=== PATIENT | female | born 1980 | race Caucasian/White ===

== ENCOUNTER 2020-07-27 22:08 | Emergency (ER) | payer OTHER, SELFPAY ==
[2020-07-27] VITALS (14 sets, daily range): BP systolic 122–147; BP diastolic 82–91; PULSE 72–96; RESP 15–24; TEMP 36.1; O2SAT 96–100
--- NOTE | ~2020-07-27 | XR_ITS ---
EXAMINATION: XR chest 2V DATE: 07/27/2020 22:47 INDICATION: Chest pain TECHNIQUE: PA and lateral views of the chest are obtained. COMPARISON: 03/31/2018 FINDINGS: The lungs are free of acute opacities. There is no pleural effusion or pneumothorax. The ca rdiomediastinal silhouette is normal. The visualized bones and soft tissues are unremarkable. IMPRESSION: 1. No acute cardiopulmonary abnormality. Reviewed, dictated and finalized at location A. RONMENTAL DIRECTOR
--- NOTE | 2020-07-27 22:15 | ECG_ITS ---
Measurements Intervals [place] Rate: 79 P: 41 MA: 132 QRS: 22 QRSD: 90 T: 15 QT: 381 QTc: 439 Interpretive Statements SINUS RHYTHM MINIMAL Q WAVES- HIGH LATERAL LEADS BORDERLINE ST-T WAVE ABNORMALITY- INFERIOR LEADS BORDERLINE ECG Electronically Signed On 07-29-2020 8:50:18 [employer] AGENT by Sanya Mcfarland D.O.
[2020-07-27] MEDS: BELLADONNA ALK/PHENOB ELIX 10 ML, MAG HYDROX/ALUMINUM HYD/SIMETH 30 ML, LIDOCAINE HCL 2... PO (22:46)
[2020-07-27 22:52] LABS: Basophils Percent Auto 0.3 % (0.2-1.2); Eosinophils Percent Auto 0.1 % (0-4.4); Hematocrit 43.3 % (37.0-47.0); Hemoglobin 14.7 g/dL (12.0-15.0); Immature Granulocyte Absolute 0.05 K/mm3 (0.00-0.031); Immature Granulocyte Percent A 0.5 % (0-0.5); Lymphocytes Absolute Auto 1.89 K/mm3 (0.9-3.2); Lymphocytes Percent Auto 17.1 % (18.3-44.2); Mean Corpuscular HGB Conc 33.9 g/dl (32-36); Mean Corpuscular Hemoglobin 29.7 pg (26-34); Mean Corpuscular Volume 87.5 fl (80-100); Mean Platelet Volume 10.4 fl (7.4-10.4); Monocytes Absolute Auto 0.5 K/mm3 (0.1-0.6); Monocytes Percent Auto 4.9 % (2.6-8.5); Neutrophils Absolute Auto 8.5 K/mm3 (1.3-6.7); Neutrophils Percent Auto 77.1 % (45.5-73.1); Platelet Count Result 305 k/mm3 (150-375); Red Blood Count 4.95 M/mm3 (4.2-5.4); Red Cell Distribution Width 13.3 % (11.5-14.5); White Blood Count 11.1 K/mm3 (4.5-10.0)
[2020-07-27 23:03] LABS: Anion Gap 8 mmol/L (8-16); Blood Urea Nitrogen 16 mg/dL (7-17); Calcium 9.5 mg/dL (8.4-10.2); Carbon Dioxide 26 mmol/L (22-30); Chloride 104 mmol/L (98-107); Estimated CRCL calculation 85 ml/min; Estimated Glomerular Filt Rate > 60; Glucose 148 mg/dL (65-105); Potassium 4.1 mmol/L (3.4-5.0); Sodium 138 mmol/L (137-145)
[2020-07-27 23:09] LABS: Add Urine Microscopic? NO; Appearance Urine Clear (Clear); Bilirubin Urine Negative (Negative); Blood Urine Negative (Negative); Color Urine Straw (Yellow); Glucose Urine UA Negative (Negative); Ketones Urine Negative (Negative); Leukocyte Esterase Ur Negative LEU/UL (Negative); Nitrate Urine Negative (Negative); Protein Urine Negative (Negative); Specific Grav Ur 1.015 (1.001-1.035); Urobilinogen Urine Negative mg/dL (<2.0)
[2020-07-27 23:15] LABS: Troponin I < 0.012 ng/mL (0.000-0.034)
[2020-07-27 23:42] LABS: INR 0.9
--- NOTE | 2020-07-27 23:58 | ED.CHESTPAIN ---
HPI - Chest Pain General Chief Complaint: Chest Pain Stated Complaint: cp Time Seen by Provider: 07/27/20 22:11 History of Present Illness HPI narrative: Patient is a 40-year-old female who presents to the ER with chest pain. Constant for 2 days. Center of her chest. Aching and sharp at times. No radiation. Worse with walking. No nausea/vomiting/shortness of breath. Was seen at [facility] 2 days ago. Was told she should stay in the hospital as she may be having an [place]. She then left to go home because she needed to arrange childcare and then returned here today. Has a father who had an [place] in his 40s. Related Data Home Medications Medication Instructions Recorded Confirmed escitalopram oxalate mg 07/27/20 estradiol mg 07/27/20 Allergies Allergy/AdvReac Type Severity Reaction Status Date / Time No Known Allergies Allergy Verified 07/27/20 22:18 Review of Systems Review of Systems: All systems reviewed & are unremarkable except as noted in HPI and below Constitutional: Constitutional: Denies chills, Denies fever(s) and Denies weakness ENT: Denies nasal congestion and Denies sore throat Cardiovascular: Cardiovascular: Reports chest pain, Denies rapid heart rate and Denies radiating jaw, neck or arm pain Respiratory: Respiratory: Denies cough, Denies dyspnea and Denies wheezing Gastrointestinal: Gastrointestinal: Denies abdominal pain, Denies nausea and Denies vomiting PMFSH Past Medical History Medical History (Updated 07/28/20 @ 01:25 CDT by Henry Hoyt MD) Healthy female adult Surgical History Surgical History (Updated 07/28/20 @ 00:02 by Henry Hoyt MD) H/O eye surgery Social History Social History (Updated 07/28/20 @ 00:02 by Henry Hoyt MD) Smoking status: Current every day smoker Exam Narrative: Exam Narrative: GENERAL: Well-appearing, well-nourished, and in no acute distress. HEAD: Normocephalic, atraumatic. CHEST: Clear to auscultation. No respiratory distress. HEART: Regular rate and rhythm. No murmur heard. Normal peripheral pulses. ABDOMEN: Soft, nontender, nondistended. EXTREMITIES: Normal range of motion. No edema. SKIN: Warm, dry, no rash. NEURO: Alert and oriented x3. PSYCH: Normal mood and affect. Course Course Emergency Course: Troponin negative. Still have not received requested paperwork from [facility]. Discharge home. Vital Signs Vital signs: Vital Signs Temperature 97.0 F L 07/27/20 22:12 Pulse Rate 89 07/27/20 22:12 Respiratory Rate 24 H 07/27/20 22:12 Blood Pressure 147/91 H 07/27/20 22:12 Pulse Oximetry 98 07/27/20 22:12 Temperature 97.0 F L 07/27/20 22:12 Pulse Rate 71 07/28/20 00:45 Respiratory Rate 17 07/28/20 00:45 Blood Pressure 122/79 07/28/20 00:31 Pulse Oximetry 98 07/28/20 00:45 MDM - Chest Pain Lab Data Result diagrams: 07/27/20 22:47 07/27/20 22:47 Labs: Lab Results 07/27/20 07/27/20 07/27/20 Range/Units 22:47 22:47 22:47 WBC 11.1 H (4.5-10.0) K/mm3 RBC 4.95 (4.2-5.4) M/mm3 Hgb 14.7 (12.0-15.0) g/dL Hct 43.3 (37.0-47.0) % MCV 87.5 (80-100) fl MCH 29.7 (26-34) pg MCHC 33.9 (32-36) g/dl RDW 13.3 (11.5-14.5) % Plt Count 305 (150-375) k/mm3 MPV 10.4 (7.4-10.4) fl Immature Gran % (Auto) 0.5 (0-0.5) % Neut % (Auto) 77.1 H (45.5-73.1) % Lymph % (Auto) 17.1 L (18.3-44.2) % [place] % (Auto) 4.9 (2.6-8.5) % Eos % (Auto) 0.1 (0-4.4) % Baso % (Auto) 0.3 (0.2-1.2) % Lymph # (Auto) 1.89 (0.9-3.2) K/mm3 [place] # (Auto) 0.5 (0.1-0.6) K/mm3 Eos # (Auto) 0.0 (0-0.3) K/mm3 Baso # (Auto) 0.0 (0.0-0.1) K/mm3 Abs Immat Gran (auto) 0.05 H (0.00-0.031) K/mm3 Absolute Neuts (auto) 8.5 H (1.3-6.7) K/mm3 Absolute Nucleated RBC 0.0 (0.0-0.012) K/mm3 Nucleated RBC % 0.0 (0.0-0.2) % PT 101.9 H (11.1-14.7) Seconds INR 13.8 H* AP
[2020-07-28] VITALS (7 sets, daily range): BP systolic 112–122; BP diastolic 66–83; PULSE 65–78; RESP 15–19; O2SAT 97–99
[2020-07-28 09:20] LABS: INR 0.9; Partial Thromboplastin Time 27.5 SECONDS (22.3-36.8); Prothrombin Time 11.8 Seconds (11.1-14.7)
== END 2020-07-28 01:41 | disposition home or self-care (01) ==
PROVIDERS: Emergency Provider Emergency Medicine; PCP Physician Assistant
DX: R07.9 Chest pain, unspecified (principal); F17.200 Nicotine dependence, unspecified, uncomplicated; R94.31 Abnormal electrocardiogram [ECG] [EKG]
CPT/HCPCS: 36415; 71046; 80048; 81003; 84484; 85025; 85610; 85730; 93005; 99284; A9270

== ENCOUNTER 2020-10-20 20:14 | Emergency (ER) | payer OTHER, SELFPAY ==
--- NOTE | ~2020-10-20 | XR_ITS ---
EXAMINATION: XR chest 1V portable EXAM DATE: 10/20/2020 21:38 INDICATION: Cough, shortness of breath, chills and fever. TECHNIQUE: Portable AP frontal chest x-ray was obtained. Comparison is made to prior examination from 07/27/2020. FINDINGS: The lungs are clear. There are no pleural effusions. Cardiomediastinal silhouette is norm al. There is no pneumothorax suspected. The bones and soft tissues are unremarkable. IMPRESSION: No acute cardiopulmonary findings. Reviewed, dictated and finalized at location A. ST'S MODEL
[2020-10-20 20:18] VITALS: BP 138/87; PULSE 78; RESP 18; TEMP 36.4; O2SAT 98
--- NOTE | 2020-10-20 21:11 | PC.NURSE ---
pt ambulated to bathroom at this time
--- NOTE | 2020-10-20 22:18 | ED.HA ---
HPI - Headache General Chief Complaint: Headache Stated Complaint: headache, body ache, sore throat Time Seen by Provider: 10/20/20 20:27 History of Present Illness HPI Narrative: Patient is a 40-year-old female who presents ER with headache/body aches/cough. Ongoing for 2 days. Mild in nature. No fevers or chills or sweats. Reports Covid exposure to an individual 7 days ago. Concerned she may have contracted it. No exertional dyspnea. No aggravating or alleviating factors that she is noted. Related Data Home Medications Medication Instructions Recorded Confirmed escitalopram oxalate mg 07/27/20 estradiol mg 07/27/20 cholecalciferol (vitamin D3) 10/20/20 cyanocobalamin (vitamin B-12) mcg 10/20/20 ferrous sulfate mg 10/20/20 rosuvastatin mg 10/20/20 Allergies Allergy/AdvReac Type Severity Reaction Status Date / Time No Known Allergies Allergy Verified 10/20/20 20:15 Review of Systems Constitutional: Constitutional: Denies chills, Denies fever(s) and Denies weakness ENT: Denies nasal congestion and Reports sore throat Cardiovascular: Cardiovascular: Denies chest pain, Denies rapid heart rate and Denies radiating jaw, neck or arm pain Respiratory: Respiratory: Reports cough, Denies dyspnea and Denies wheezing Gastrointestinal: Gastrointestinal: Denies nausea and Denies vomiting Musculoskeletal: Musculoskeletal: Reports myalgias and Denies muscle cramps PMFSH Past Medical History Medical History (Updated 10/20/20 @ 22:21 by Henry Hoyt MD) Healthy female adult Surgical History Surgical History (Updated 07/28/20 @ 00:02 by Henry Hoyt MD) H/O eye surgery Social History Social History (Updated 07/28/20 @ 00:02 by Henry Hoyt MD) Smoking status: Current every day smoker Gender identity (if verbalized by the patient): Female Exam Narrative: Exam Narrative: GENERAL: Well-appearing, well-nourished, and in no acute distress. HEAD: Normocephalic, atraumatic. CHEST: Clear to auscultation. No respiratory distress. HEART: Regular rate and rhythm. Normal peripheral pulses. EXTREMITIES: Normal range of motion. No edema. SKIN: Warm, dry, no rash. NEURO: Alert and oriented x3. PSYCH: Normal mood and affect. Course Course Emergency Course: Informed of results. Discussed that she needs to self isolate until she receives her Covid result. Patient verbalized understanding. Vital Signs Vital signs: Vital Signs Temperature 97.6 F 10/20/20 20:18 Pulse Rate 78 10/20/20 20:18 Respiratory Rate 18 10/20/20 20:18 Blood Pressure 138/87 10/20/20 20:18 Pulse Oximetry 98 10/20/20 20:18 Temperature 97.6 F 10/20/20 20:18 Pulse Rate 78 10/20/20 20:18 Respiratory Rate 18 10/20/20 20:18 Blood Pressure 138/87 10/20/20 20:18 Pulse Oximetry 98 10/20/20 20:18 MDM - Headache Lab Data Labs: Lab Results 10/20/20 Range/Units 20:54 SARS-CoV-2 RNA (RT-PCR) Pending Imaging Data Radiologist's impression: ITS Impressions Chest X-Ray 10/20/20 21:43 IMPRESSION: No acute cardiopulmonary findings. Discharge Plan Discharge Clinical Impression: Person under investigation for COVID-19 Patient Disposition: Home, Self-Care Condition: Stable Instructions: COVID-19 (Coronavirus Disease 2019) (ED) Additional Instructions: You need to self isolate at home until you receive a negative Covid test. If your Covid test is positive then you will need to self isolate until you are cleared by the health department or your primary care physician. Return to the ER if you cannot breathe, you lose consciousness, you have additional concerns. Prescriptions: No Action estradiol 2 mg tablet RF: 0 escitalopram oxalate 10 mg tablet RF: 0 naproxen 500 mg tablet 500 mg PO BID Qty: 20 RF: 0 cyanocobalamin (vitamin B-12) 1,000 mcg tablet RF: 0 ferrous sulfate 325 mg (65 mg iron) t
[2020-10-20 22:30] VITALS: BP 131/84; PULSE 76; RESP 18; O2SAT 98
[2020-10-21 18:27] LABS: SARS-CoV-2 RNA PCR Negative
== END 2020-10-20 22:30 | disposition home or self-care (01) ==
PROVIDERS: Emergency Provider Emergency Medicine; PCP Physician Assistant
DX: R05 Cough (principal); R51.9 Headache, unspecified; Z20.822 Contact with and (suspected) exposure to COVID-19; F17.200 Nicotine dependence, unspecified, uncomplicated
CPT/HCPCS: 71045; 99283; C9803; U0003; U0005